=== PATIENT | male | born 1970 | race Two or more races ===

== ENCOUNTER 2017-11-17 17:23 | Emergency (ER) | payer OTHER ==
[2017-11-17 17:34] VITALS: BP 118/74
--- NOTE | 2017-11-17 18:41 | UC ---
Butch Rehman Nikita, scribed for Dre Nunez MD on 11/17/17 at 1817 . Respiratory Complaint HPI - HPI Summary HPI Summary: This patient is a 47 year old M presenting to [facility] with a chief complaint of intermittent non-productive cough since 5 weeks ago s/p dx with the flu. He was dx through his PCP and was given and taken a full course of abx and steroids. The patient rates the pain 0/10 in severity. Symptoms aggravated by nothing. Symptoms alleviated by nothing. Patient reports he has taken 2 CXR with no evidence of infection. He has hx of asthma as a child and just moved into this area from [place]. - History of Current Complaint Chief Complaint: UCGeneralIllness Stated Complaint: COUGH Time Seen by Provider: 11/17/17 17:51 Hx Obtained From: Patient Onset/Duration: Sudden Onset, Lasting Weeks - 5 weeks ago, Still Present Timing: Constant Severity Currently: None Pain Intensity: 0 Pain Scale Used: 0-10 Numeric Character: Cough: Nonproductive Aggravating Factors: Nothing Alleviating Factors: Nothing - Allergies/Home Medications Allergies/Adverse Reactions: Allergies Allergy/AdvReac Type Severity Reaction Status Date / Time No Known Allergies Allergy Verified 10/15/17 10:14 PMH/Surg Hx/FS Hx/Imm Hx Endocrine History: Other Other Endocrine History: No DM Respiratory History: Asthma, Other Other Respiratory History: No COPD Other History Of: Negative For: Anticoagulant Therapy - Surgical History Surgical History: Yes Surgery Procedure, Year, and Place: r ankle - Family History Known Family History: Positive: Hypertension Negative: Respiratory Disease, Seizure Disorder - Social History Alcohol Use: None Substance Use Type: None Smoking Status (MU): Never Smoked Tobacco Review of Systems Constitutional: Other - denies fever Respiratory: Cough - intermittent, non-productive All Other Systems Reviewed And Are Negative: Yes Physical Exam - Summary Physical Exam Summary: VITAL SIGNS: Reviewed. GENERAL: ~Patient is a well-developed and nourished MALE who is lying comfortable in the stretcher. ~Patient is not in any acute respiratory distress. HEAD AND FACE: Normocephalic EYES: PERRLA, EOMI x 2. EARS: Hearing grossly intact. MOUTH: Oropharynx within normal limits. NECK: Supple, trachea is midline, no adenopathy, no JVD, no carotid bruit. CHEST: Symmetric, no tenderness at palpation LUNGS: No crackles. Diffuse slight wheezing. CVS: Regular rate and rhythm, S1 and S2 present, no murmurs or gallops appreciated. ABDOMEN: Soft, non-tender. Bowel sounds are normal. No abdominal abnormal pulsations. EXTREMITIES: Full ROM in all major joints, no edema, no cyanosis or clubbing. NEURO: Alert and oriented x 3. No acute neurological deficits. Speech is normal and follows commands. SKIN: Dry and warm Triage Information Reviewed: Yes Vital Signs: Initial Vital Signs Temp 98.0 F 11/17/17 17:28 Pulse 65 11/17/17 17:28 Resp 16 11/17/17 17:28 BP 118/74 11/17/17 17:28 Pulse Ox 100 11/17/17 17:28 Vital Signs Reviewed: Yes Diagnostic Evaluation - Laboratory O2 Sat by Pulse Oximetry: 100 Respiratory Course/Dx - Course Course Of Treatment: This patient is a 47 year old M presenting to [facility] with a chief complaint of intermittent non-productive cough since 5 weeks ago s/p dx with the flu. I believe the patient has asthma and that is the reason for why he is having the dry cough. The patient has albuterol and will be given prednisone and we will refer him to a door to door lead generation. The pt is hemodynamically stable, alert and oriented x3. Patient was instructed to return to the urgent care or go to ER immediately if any of the symptoms return or worsens. Plan of care was discussed with the patient, and patient understands and agrees. All questions were answered to patient satisfaction. There were no further complaints or concerns. - Differential Dx/Diagnosis Differential Diagnosis/HQI/PQRI: Asthma Provider Diagnoses: asthma Discharge - Sign-Out/Discharge Documenting (check all that apply): Discharge/Admit/Transfer - Discharge Plan Condition: Stable Disposition: HOME Prescriptions: predniSONE TAB* [Deltasone TAB*] 40 mg PO DAILY #10 tab Patient Education Materials: Asthma (ED) Referrals: Mitchell Huber MD [Primary Care Provider] - Hilary Marroquin MD [Medical Doctor] - Additional Instructions: Take medications as instructed Increase your fluid intake Return to the if symptoms worsen The documentation as recorded by the Butch barraza Nikita accurately reflects the service I personally performed and the decisions made by , Dre Nunez MD.
== END 2017-11-17 18:42 | disposition home or self-care (01) ==
LOC: UCEAST 17:23
DX: J45.909 Unspecified asthma, uncomplicated (principal)
CPT/HCPCS: 99212; G0463